=== PATIENT | female | born 2000 | race Caucasian/White ===

== ENCOUNTER 2024-10-09 09:21 | Emergency (ER) | payer OTHER ==
[~2024-10-09] VITALS: Ht 177.8 cm; Wt 95.3 kg
[2024-10-09] MEDS ORDERED: HALOPERIDOL LACTATE INJ 5 MG/ML VIAL ONE (09:43)
[2024-10-09 09:55] LABS: PREGNANCY TEST URINE QUAL NEGATIVE (NEGATIVE)
[2024-10-09 09:56] LABS: APPEARANCE,URINE CLEAR (CLEAR); BLOOD, URINE TRACE-INTA Ery/uL (NEGATIVE); LEUKOCYTE ESTERASE ,URINE NEGATIVE (NEGATIVE); NITRITE, URINE NEGATIVE (NEGATIVE); UGLUCOSE NEGATIVE (NEGATIVE)
[2024-10-09 10:14] LABS: SQUAMOUS EPITHELIAL CELL,UR Many /HPF (None Seen)
[2024-10-09 10:15] LABS: ADD URINE CULTURE YES
[2024-10-09] MEDS: HALOPERIDOL LACTATE INJ 5 MG/ML VIAL IM ONE (10:15)
[2024-10-09] MEDS: IV NS 0.9% 1,000 ML BAG IV ONE (10:16)
[2024-10-09 10:22] LABS: PLATELET COUNT (AUTO) 285 K/uL (150-450); RED BLOOD CELL COUNT(AUTO) 4.38 MIL/uL (4.0-5.2); RED CELL DISTRIBUTION WIDTH 13.1 % (11.5-15.0); WHITE BLOOD COUNT (AUTO) 17.3 K/uL (4.3-11.0)
[2024-10-09 10:31] LABS: CALCIUM, SERUM 9.0 mg/dL (8.5-10.1); CREATININE 0.9 mg/dL (0.6-1.3); SODIUM SERUM 139 mmol/L (136-145); UREA NITROGEN, BLOOD 11 mg/dL (7-18)
[2024-10-09 10:37] LABS: ASPARTATE AMINOTRANSFERASE 15 U/L (15-37); TOTAL PROTEIN, SERUM 7.4 g/dL (6.4-8.2)
[2024-10-09] MEDS ORDERED: ONDA4TAB5 PO (10:47)
[2024-10-09] MEDS ORDERED: ONDANSETRON HCL/PF 4 MG/2 ML VIAL ONE (10:52)
[2024-10-09] MEDS: ONDANSETRON HCL/PF - ER 4 MG/2 ML VIAL IM ONE (10:59)
[2024-10-09 11:00] VITALS: BP 110/60; TEMP 98.5; O2SAT 99
== END 2024-10-09 11:01 | disposition home or self-care (01) ==
LOC: ER 09:42
DX: R11.2 Nausea with vomiting, unspecified (principal); R07.9 Chest pain, unspecified; F41.9 Anxiety disorder, unspecified; R06.02 Shortness of breath; F32.A Depression, unspecified; Z88.0 Allergy status to penicillin; Z88.2 Allergy status to sulfonamides
CPT/HCPCS: 99284; 96360; 93005; 85025; 80048; 83690; 80076; 81001; 36415; 84484; 96372 ×2; 84703 ×2; J1630; J2405 ×2